=== PATIENT | female | born 2000 | race Caucasian/White ===

== ENCOUNTER 2020-04-03 11:11 | Inpatient (IN) ==
[2020-04-03] MEDS: LACTATED RINGERS 1,000 ML IV SCH ×2 (11:58→19:58)
[2020-04-03] MEDS: ONDANSETRON 4 MG/2 ML VIAL IV SCH ×3 (12:10→19:59)
[2020-04-03] MEDS: SCOPOLAMINE 1.5 MG PATCH TRANSDERM SCH (12:12)
[2020-04-03 13:10] LABS: Basophils % 0.2 % (0.0-0.8); Hematocrit 39.2 VOL% (35.7-47.0); Hemoglobin 13.5 GM/DL (12.0-16.0); Immature Granulocytes % 0.2 %; Immature Granulocytes Absolute 0.02 #; Lymphocytes % 10.1 % (21.3-54.2); Mean Corpuscular HGB Conc 34.4 GM/DL (32-36); Mean Corpuscular Volume 79.8 FL (87-102); Mean Platelet Volume 11.5 FL (9.6-12.0); Neutrophils % 86.5 % (38.7-73.9); Platelet Count 257 T/CUMM (130-400); Red Blood Count 4.91 MC/CUMM (3.8-5.5); Red Cell Distribution Width 12.9 % (9.3-17.3); White Blood Count 9.6 T/CUMM (4-12)
[2020-04-03 13:30] LABS: Albumin 3.6 G/DL (3.4-5.0); Bilirubin,Total 0.6 MG/DL (0.2-1.0); Calcium 9.9 MG/DL (8.5-10.1); Osmolality,Calculated 271.7 MOS/KG (273-304); Total Protein 7.3 G/DL (6.4-8.3)
[2020-04-03 13:51] LABS: Thyroid Stimulating Hormone < 0.005 uIU/ml (0.358-3.74)
[2020-04-04] MEDS: ONDANSETRON 4 MG/2 ML VIAL IV SCH ×4 (00:10→12:41)
[2020-04-04] MEDS: LACTATED RINGERS 1,000 ML IV SCH ×3 (02:47→22:42)
[2020-04-04] MEDS: SCOPOLAMINE 1.5 MG PATCH TRANSDERM SCH (08:26)
[2020-04-04 09:14] LABS: Hepatitis B Core IgM Quant 0.16 Index; Hepatitis B Surface Ag Quant < 0.10 Index; Hepatitis B Surface Ag Result Negative (Negative); Hepatitis C Virus Ab Quant 0.02 Index; Hepatitis C Virus Ab Result Negative (Negative)
[2020-04-04] MEDS: ONDANSETRON 4 MG/2 ML VIAL IV PRN ×2 (17:03→21:32)
[2020-04-04] MEDS: FAMOTIDINE 20 MG/2 ML VIAL IV SCH (19:11)
[2020-04-05] MEDS: LACTATED RINGERS 1,000 ML IV SCH (05:23)
[2020-04-05] MEDS: ONDANSETRON 4 MG/2 ML VIAL IV PRN (08:19)
[2020-04-05] MEDS: FAMOTIDINE 20 MG/2 ML VIAL IV SCH (08:20)
[2020-04-05 08:37] VITALS: BP 109/57
[2020-04-05 09:13] LABS: Albumin 2.8 G/DL (3.4-5.0); Bilirubin,Direct 0.22 MG/DL (0.0-0.20); Bilirubin,Indirect 0.3 MG/DL (0.0-1.0); Bilirubin,Total 0.5 MG/DL (0.2-1.0); Total Protein 6.5 G/DL (6.4-8.3)
== END 2020-04-05 10:35 | disposition home or self-care (01) | DRG 566 ==
LOC: N.OBOUT 11:11 → N.OB 11:13
PROVIDERS: ADMIT Obstetrics & Gynecology; ATTEND Obstetrics & Gynecology

== ENCOUNTER 2020-10-06 11:25 | Inpatient (IN) ==
[2020-10-06] MEDS ORDERED: OXYTOCIN/LR 20 UNIT/1,000 ML BAG IV ONE ×3 (11:34→12:17)
[2020-10-06] MEDS ORDERED: miSOPROStoL 200 MCG TABLET ONE (11:39)
[2020-10-06] MEDS ORDERED: METHYLERGONOVINE 0.2 MG/1 ML AMP ONE (11:40)
[2020-10-06] MEDS ORDERED: CARBOPROST TROMETHAMINE 250 MCG/ML AMP IM ONE (11:40)
[2020-10-06] MEDS ORDERED: ONDANSETRON 4 MG/2 ML VIAL IV PRN ×2 (11:45→12:17)
[2020-10-06] MEDS ORDERED: BUTORPHANOL 1 MG/ML VIAL IV ONE (11:54)
[2020-10-06] MEDS ORDERED: LACTATED RINGERS 1,000 ML IV SCH (12:00)
[2020-10-06 12:05] LABS: Cord Arterial Blood HCO3 24.2 MMOL/L
[2020-10-06 12:07] LABS: Basophils % 0.2 % (0.0-0.8); Eosinophils % 0.2 % (0.00-10.9); Hematocrit 37.2 VOL% (35.7-47.0); Hemoglobin 12.4 GM/DL (12.0-16.0); Immature Granulocytes % 0.8 %; Lymphocytes # 1.8 10*3/uL (1.4-4.0); Lymphocytes % 14.3 % (21.3-54.2); Mean Corpuscular HGB Conc 33.3 GM/DL (32-36); Mean Corpuscular Volume 80.5 FL (87-102); Mean Platelet Volume 11.7 FL (9.6-12.0); Monocytes % 3.4 % (1.7-12.7); Neutrophils % 81.1 % (38.7-73.9); Platelet Count 281 T/CUMM (130-400); Red Blood Count 4.62 MC/CUMM (3.8-5.5); Red Cell Distribution Width 13.4 % (9.3-17.3); White Blood Count 12.6 T/CUMM (4-12)
[2020-10-06 12:09] LABS: Cord Venous Blood HCO3 21.8 MMOL/L; Cord Venous Blood PCO2 39.8 MMHG; Cord Venous Blood PO2 28.9 MMHG
[2020-10-06] MEDS ORDERED: HYDROCORTISONE 2.5% RECTAL CREAM 30 GM TUBE TOP PRN (12:17)
[2020-10-06] MEDS ORDERED: ACETAMINOPHEN 325 MG TABLET PO PRN (12:17)
[2020-10-06] MEDS ORDERED: MEASLES/MUMPS/RUBELLA VACCINE 0.5 ML VIAL SUBCUT ONE (12:17)
[2020-10-06] MEDS ORDERED: DIPH/TET/ACEL PERT BOOSTER VACCINE 0.5 ML VIAL IM ONE (12:17)
[2020-10-06] MEDS ORDERED: RHO(D) IMMUNE GLOBULIN 300 MCG SYRINGE IM ONE (12:17)
[2020-10-06] MEDS ORDERED: BISACODYL 10 MG SUPP RECTAL PRN (12:17)
[2020-10-06] MEDS ORDERED: LANOLIN 50% CREAM 0.3 OZ TUBE TOP PRN (12:17)
[2020-10-06] MEDS ORDERED: oxyCODONE/ACETAMINOPHEN 5-325 MG TABLET PO PRN (12:17)
[2020-10-06] MEDS ORDERED: BENZOCAINE 20%/MENTHOL 0.5% SPRAY 56 GM CAN TOP PRN (12:17)
[2020-10-06] MEDS ORDERED: WITCH HAZEL PADS 100/JAR TOP PRN (12:17)
[2020-10-06 12:20] LABS: Alanine Aminotransferase 10 U/L (13-56); Albumin 2.9 G/DL (3.4-5.0); Alkaline Phosphatase 215 U/L (45-117); Aspartate Amino Transferase 12 U/L (0-37); Bilirubin,Total < 0.39 MG/DL (0.2-1.0); Blood Urea Nitrogen 8 MG/DL (7-18); Calcium 8.8 MG/DL (8.5-10.1); Estimated Glom Filtration Rate 135 ML/MIN; Glucose 100 MG/DL (74-106); Osmolality,Calculated 272.7 MOS/KG (273-304); Total Protein 7.2 G/DL (6.4-8.3)
[2020-10-06 13:19] LABS: Platelet Estimate Normal
[2020-10-06 13:20] LABS: Anisocytosis Slight
[2020-10-06] MEDS: oxyCODONE/ACETAMINOPHEN 5-325 MG TABLET PO PRN (17:33)
[2020-10-06] MEDS: IBUPROFEN 800 MG TABLET PO PRN (17:33)
[2020-10-06] MEDS: DOCUSATE SODIUM 100 MG CAPSULE PO SCH (21:23)
[2020-10-07] MEDS: oxyCODONE/ACETAMINOPHEN 5-325 MG TABLET PO PRN ×2 (03:33→19:21)
[2020-10-07] MEDS: IBUPROFEN 800 MG TABLET PO PRN ×2 (03:33→19:23)
[2020-10-07 06:55] LABS: Basophils % 0.2 % (0.0-0.8); Eosinophils # 0.1 10*3/uL (0.0-0.87); Eosinophils % 0.5 % (0.00-10.9); Hematocrit 29.2 VOL% (35.7-47.0); Hemoglobin 9.6 GM/DL (12.0-16.0); Immature Granulocytes % 0.5 %; Immature Granulocytes Absolute 0.05 #; Lymphocytes % 17.9 % (21.3-54.2); Mean Corpuscular HGB Conc 32.9 GM/DL (32-36); Mean Corpuscular Volume 81.8 FL (87-102); Mean Platelet Volume 11.4 FL (9.6-12.0); Monocytes % 4.9 % (1.7-12.7); Platelet Count 215 T/CUMM (130-400); Red Blood Count 3.57 MC/CUMM (3.8-5.5); Red Cell Distribution Width 13.4 % (9.3-17.3)
[2020-10-07] MEDS: DOCUSATE SODIUM 100 MG CAPSULE PO SCH ×2 (09:25→19:23)
[2020-10-08] MEDS: DOCUSATE SODIUM 100 MG CAPSULE PO SCH ×2 (06:10→10:15)
[2020-10-08 08:58] VITALS: BP 129/81
== END 2020-10-08 13:20 | disposition home or self-care (01) | DRG 560 ==
LOC: N.LDOUT 11:25 → N.LD 11:27 → N.OB 15:15
PROVIDERS: ADMIT Obstetrics & Gynecology; ATTEND Obstetrics & Gynecology